=== PATIENT | male | born 1970 | race Caucasian/White ===

== ENCOUNTER 2017-01-14 11:10 | Emergency (ER) | END 2017-01-14 13:05 | disposition home or self-care (01) | DX: R07.9 Chest pain, unspecified (principal); F17.210 Nicotine dependence, cigarettes, uncomplicated | CPT/HCPCS: 71010; 93005; Z7502; Z7610 ==

== ENCOUNTER 2017-01-16 09:03 | Inpatient (IN) | payer MEDICAID ==
[~2017-01-16] VITALS: Ht 162.6 cm; Wt 53.8 kg
[~2017-01-16 09:03] MED LIST: ACET500C5 PO; IBUP-1542 PO; MECL25TA2 PO; ONDA4TAB35 PO
[2017-01-16] MEDS ORDERED: NITROGLYCERIN 2% 1 GM OINT PKT TD STA (09:45)
[2017-01-16] MEDS ORDERED: ASPIRIN 81 MG TAB PO STA (09:45)
[2017-01-16] MEDS ORDERED: NITROGLYCERIN (SL) 0.4 MG TAB SL PRN (10:00)
[2017-01-16 10:07] LABS: ADD SCAN DIFF NO
[2017-01-16 10:15] LABS: BASOPHIL # 0.1 10^3/ul (0.0-0.1); BASOPHILS % 2.3 % (0.0-2.0); EOSINOPHILS # 0.1 10^3/ul (0.0-0.5); EOSINOPHILS % 2.1 % (0.0-7.0); HEMATOCRIT 38.5 % (42.0-52.0); HEMOGLOBIN 13.2 g/dl (14.0-18.0); LYMPHOCYTES # 0.7 10^3/ul (0.8-2.9); LYMPHOCYTES % 13.7 % (15.0-51.0); MEAN CORPUSCULAR HEMOGLOBIN 32.8 pg (29.0-33.0); MEAN CORPUSCULAR HGB CONC 34.3 g/dl (32.0-37.0); MEAN CORPUSCULAR VOLUME 95.8 fl (82.0-101.0); MEAN PLATELET VOLUME 10.2 fl (7.4-10.4); MONOCYTE # 0.7 10^3/ul (0.3-0.9); MONOCYTES % 13.5 % (0.0-11.0); NEUTROPHIL # 3.6 10^3/ul (1.6-7.5); NEUTROPHILS % 68.2 % (39.0-77.0); PLATELET COUNT 219 10^3/UL (140-415); RED BLOOD COUNT 4.02 10^6/ul (4.70-6.10); RED CELL DISTRIBUTION WIDTH 13.2 % (11.5-14.5); WHITE BLOOD COUNT 5.3 10^3/ul (4.8-10.8)
--- NOTE | 2017-01-16 10:18 | RADRPT ---
PROCEDURE: XR Chest. CLINICAL INDICATION: Chest pain TECHNIQUE: A single AP view of the chest was obtained. COMPARISON: Chest x-ray dated 01/14/2017 FINDINGS: No focal airspace opacification, pleural effusion or pneumothorax is seen. There is a 1.1 cm calcif ied nodule in the right lower lobe. The cardiomediastinal silhouette is within normal limits for si ze. The osseous structures are unremarkable. IMPRESSION: 1. No radiographic evidence of acute cardiopulmonary disease. No significant interval change. 2. Right lower lobe granuloma. RPTAT: HH .Saige Erickson MD, MD Date Time Electronically viewed and signed by .Saige Erickson MD, on 01/16/2017 10:18 .G/
[2017-01-16 10:32] LABS: ANION GAP 16 (8-16); BLOOD UREA NITROGEN 4 mg/dl (7-20); CALCIUM 9.2 mg/dl (8.4-10.2); CARBON DIOXIDE 23 mmol/L (21-31); CHLORIDE 98 mmol/L (97-110); CREATININE 0.65 mg/dl (0.61-1.24); GLUCOSE 106 mg/dl (70-220); POTASSIUM 3.8 mmol/L (3.5-5.1); SODIUM 133 mmol/L (135-144)
[2017-01-16 10:48] LABS: TROPONIN-I < 0.012 ng/ml (0.00-0.12)
[2017-01-16 11:08] LABS: INR 0.91; PROTIME 12.3 Sec (12.2-14.2)
[2017-01-16 11:09] LABS: PARTIAL THROMBOPLASTIN TIME 32.8 Sec (25.0-35.0)
[2017-01-16] MEDS ORDERED: ONDANSETRON 4 MG INJ IV PRN ×2 (12:00→16:30)
[2017-01-16] MEDS ORDERED: ACETAMINOPHEN 325 MG TAB PO PRN (12:00)
--- NOTE | 2017-01-16 12:56 | ERA ---
ER Documentation Chief Complaint Date/Time DATE: 01/16/17 TIME: 12:54 Chief Complaint Complains of chest pain since today HPI Patient is a 46-year-old male with no medical problems who presents with chest pain. He has left-sided chest pain that started this morning. The pain is constant. It waxes and wanes in intensity. He was sweating as well. He denies cough. He has had no treatment as of yet. Upon review of old medical records he does have multiple visits to the ER for various complaints. He was seen here 2 days previously for the same. He does not currently have a primary doctor. ROS All systems reviewed and are negative except as per history of present illness. Medications Home Meds Discontinued Reported Medications [none] Unknown Strength No Conflict Check 05/23/15 Discontinued Scripts Ibuprofen* (Motrin*) 600 Mg Tab, 600 MG PO Q8, #30 TAB Prov:NATIVIDAD GIBSON MD 01/14/17 Ondansetron Hcl* (Zofran* ODT) 4 mg -ODT Tab.disper, 4 MG PO Q8 Y for NAUSEA AND /OR VOMITING, #30 TAB Prov:JUDI ANDERSON NP 05/23/15 Acetaminophen* (Tylophen*) 500 Mg Capsule, 1 CAP PO Q6H Y for PAIN AND OR ELEVATED TEMP, #20 CAP Prov:JUDI ANDERSON NP 05/23/15 Meclizine Hcl* (Antivert*) 25 Mg Tablet, 25 MG PO Q6H Y for NAUSEA, #20 TAB Prov:LUDY CORTES 01/04/15 Allergies Allergies: Coded Allergies: No Known Allergy (Unverified , 01/16/17) PMhx/Soc Medical and Surgical Hx: pt denies Medical Hx History of Surgery: Yes (franklin upper extremities, face, abd) Anesthesia Reaction: No Hx Neurological Disorder: No Hx Respiratory Disorders: No Hx Cardiac Disorders: No Hx Psychiatric Problems: No Hx Miscellaneous Medical Probl: No Hx Alcohol Use: Yes ("1-2" beers daily x20 years) Hx Substance Use: No Hx Tobacco Use: Yes (OCCASIONAL CIGARETTES) Smoking Status: Unknown if ever smoked FmHx Family History: No coronary disease Physical Exam Vitals Vital Signs Date Time Temp Pulse Resp B/P Pulse Ox O2 Delivery O2 Flow Rate FiO2 01/16/17 11:44 97.7 61 16 107/72 99 Nasal Cannula 2.0 01/16/17 10:00 Nasal Cannula 2 01/16/17 09:05 97.5 72 20 138/71 98 Physical Exam Const: No acute distress Head: Atraumatic Eyes: Normal Conjunctiva ENT: Normal External Ears, Nose and Mouth. Neck: Full range of motion..~ No meningismus. Resp: Clear to auscultation bilaterally Cardio: Regular rate and rhythm, no murmurs Abd: Soft, non tender, non distended. Normal bowel sounds Skin: No petechiae or rashes Back: No midline or flank tenderness Ext: No cyanosis, or edema Neur: Awake and alert Psych: Normal Mood and Affect Result Diagram: 01/16/1757 01/16/17 0957 Results 24 hrs Laboratory Tests Test 01/16/17 09:57 White Blood Count 5.310^3/ul Red Blood Count 4.0210^6/ul Hemoglobin 13.2g/dl Hematocrit 38.5% Mean Corpuscular Volume 95.8fl Mean Corpuscular Hemoglobin 32.8pg Mean Corpuscular Hemoglobin Concent 34.3g/dl Red Cell Distribution Width 13.2% Platelet Count 52346^3/UL Mean Platelet Volume 10.2fl Neutrophils % 68.2% Lymphocytes % 13.7% Monocytes % 13.5% Eosinophils % 2.1% Basophils % 2.3% Nucleated Red Blood Cells % 0.0/100WBC Neutrophils # 3.610^3/ul Lymphocytes # 0.710^3/ul Monocytes # 0.710^3/ul Eosinophils # 0.110^3/ul Basophils # 0.110^3/ul Nucleated Red Blood Cells # 0.010^3/ul Prothrombin Time 12.3Sec Prothrombin Time Ratio 1.0 INR International Normalized Ratio 0.91 Activated Partial Thromboplast Time 32.8Sec Sodium Level 133mmol/L Potassium Level 3.8mmol/L Chloride Level 98mmol/L Carbon Dioxide Level 23mmol/L Anion Gap 16 Blood Urea Nitrogen 4mg/dl Creatinine 0.65mg/dl Glucose Level 106mg/dl Calcium Level 9.2mg/dl Troponin I < 0.012ng/ml Current Medications Medications (Trade) Dose Ordered Sig/Loly Route PRN Reason Start Time Stop Time Status Last Admin Dose Admin Aspirin (Aspirin) 162 mg ONCE STAT PO 01/16/17 09:45 01/16/17 09:46 DC 01/16/17 09:59 Nitroglycerin (Nitroglycerin 2% Oint) 1 inch ONCE STAT TD 01/16/17 09:45 01/16/17 09:46 DC 01/16/17 09:59 Nitroglycerin (Nitroglycerin (Sl Tab) 0.4 Mg) 1 tab Q5M UP TO 3 DOSES PRN SL CHEST PAIN 01/16/17 10:00 01/16/17 10:00 Ondansetron HCl (Zofran Inj) 4 mg ER BRIDGE PRN IV NAUSEA AND/OR VOMITING 01/16/17 12:00 01/17/17 11:59 Acetaminophen (Tylenol Tab) 650 mg ER BRIDGE PRN PO MILD PAIN/FEVER 01/16/17 12:00 01/17/17 11:59 Procedures/MDM EKG #1 read by me: Rate/Rhythm: Regular rate and rhythm at a normal rate Intervals: Normal Impression: No evidence of ischemia or arrhythmia EKG #2 read by me: Rate/Rhythm: Regular rate and rhythm at a normal rate Intervals: Normal Impression: No evidence of ischemia or arrhythmia Chest x-ray negative for pneumonia or pneumothorax per radiology. Smoking Cessation Therapy: Pt. was lectured for greater than 3 minutes on the health risks of continued smoking and the benefits of cessation. Patient is a 46-year-old male who smokes who presents with chest pain. His x- ray was negative for pneumonia or pneumothorax. I doubt pulmonary embolism or aortic dissection. I am concerned for potential acute coronary syndrome given his age and smoking cessation. The patient will be admitted to the care of Dr. Henry from the panel team for further workup. He will be admitted to a telemetry bed. The patient understands the plan is okay for admission. The patient was given aspirin nitroglycerin empirically. Departure Diagnosis: Primary Impression: Chest pain Qualified Code: R07.9 - Chest pain, unspecified type Condition: NATIVIDAD Alatorre MD Jan 16, 2017 12:56
[2017-01-16 12:58] VITALS: TEMP 98
[2017-01-16 14:23] VITALS: Ht 162.6 cm; Wt 53.8 kg
[2017-01-16 16:15] VITALS: BP 112/74; RESP 20
--- NOTE | 2017-01-16 16:32 | HP ---
Date/Time of Note Date/Time of Note DATE: 01/16/17 TIME: 16:29 Assessment/Plan VTE Prophylaxis VTE Prophylaxis Intervention: LMWH Lines/Catheters IV Catheter Type (from Nrs): Saline Lock Assessment/Plan Assessment/Plan 1. Chest pain 2. tobacco abuse 3. hx of elevated liver enzymes PLAN: Telemetry admission, trend cardiac enzymes, 2d echo if none recently and possible cardiology consult for stress test. Trend liver enzymes, possible liver ultrasound if indicated oxygen and nitroglycerin therapy as needed. Daily aspirin if no allergy or bleeding risk. Get lipid profile, magnesium and TSH levels in am. Smoking Cessation Therapy: Pt. was lectured for greater than 3 minutes on the health risks of continued smoking and the benefits of cessation and this will continue to be reinforced throughout hospitalization. HPI/ROS Admit Date/Time Admit Date/Time Jan 16, 2017 at 11:33 Hx of Present Illness 46-year-old male who presented to the emergency room with left-sided chest pain that was described as intermittent and about an 8 out of 10 at the worst. His risk factor for coronary artery disease is tobacco use, however patient has presented to the ER once previously for similar symptoms. Pain is sometimes reproducible. He denies cough, denies palpitations, denies shortness of breath but thinks he might of had some diaphoresis. Denies acid reflux, denies abdominal pain nausea, vomiting or black or bloody stools. ROS 12 point review if systems was done and pertinent findings are as noted. PMH/Family/Social Past Medical History Medical History: no pertinent history Past Surgical History * L arm sx Family History Significant Family History: heart disease Social History Alcohol Use: occasionally Smoking Status: Current every day smoker Drug Use: none Exam/Review of Systems Vital Signs Vitals VS - Last 72 Hours, by Label Date Time Temp Pulse Resp B/P Pulse Ox O2 Delivery O2 Flow Rate FiO2 01/16/17 16:15 98.8 58 20 112/74 100 01/16/17 12:58 98.0 66 14 118/80 99 Nasal Cannula 2.0 01/16/17 11:44 97.7 61 16 107/72 99 Nasal Cannula 2.0 01/16/17 10:00 Nasal Cannula 2 01/16/17 09:05 97.5 72 20 138/71 98 Vital Signs Date Time Temp Pulse Resp B/P Pulse Ox O2 Delivery O2 Flow Rate FiO2 01/16/17 16:15 98.8 58 20 112/74 100 01/16/17 12:58 Nasal Cannula 2.0 Exam Exam GENERAL: Patient is alert, oriented x 3, in no apparent distress; does not appear acutely or chronically ill. Patient is able to sit up unassisted.Patient makes good eye contact, is conversant, interactive, coherent. Patient appears calm and comfortable and is able to follow commands. HEENT: Oropharynx is clear. There is no carotid bruit, no masses. Patient's pupils are equal, round and reactive to light bilaterally. Extraocular motions are intact. There is no scleral icterus. There is no facial asymmetry. NECK: Supple. LUNGS: Clear to auscultation bilaterally with good air entry. No Wheezes or crackles. HEART: S1, S2. No murmur, gallops or rubs. Regular rate and rhythm. ABDOMEN: Soft, nontender. Normoactive bowel sounds. There are no stigmata of chronic liver disease. BACK: no costovertebral angle tenderness. GENITOURINARY: Deferred. EXTREMITIES: No edema. There is no cyanosis, clubbing. There are 2+ pulses bilaterally distally. NEUROLOGIC: The patient has no lateralizing signs. Cranial nerves II-XII are intact. SKIN: Otherwise, unremarkable. Labs Result Diagram: 01/16/17 0957 01/16/17 0957 Procedures Procedures Laboratory Tests Test 01/16/17 09:57 White Blood Count 5.310^3/ul Red Blood Count 4.0210^6/ul Hemoglobin 13.2g/dl Hematocrit 38.5% Mean Corpuscular Volume 95.8fl Mean Corpuscular Hemoglobin 32.8pg Mean Corpuscular Hemoglobin Concent 34.3g/dl Red Cell Distribution Width 13.2% Platelet Count 20817^3/UL Mean Platelet Volume 10.2fl Neutrophils % 68.2% Lymphocytes % 13.7% Monocytes % 13.5% Eosinophils % 2.1% Basophils % 2.3% Nucleated Red Blood Cells % 0.0/100WBC Neutrophils # 3.610^3/ul Lymphocytes # 0.710^3/ul Monocytes # 0.710^3/ul Eosinophils # 0.110^3/ul Basophils # 0.110^3/ul Nucleated Red Blood Cells # 0.010^3/ul Prothrombin Time 12.3Sec Prothrombin Time Ratio 1.0 INR International Normalized Ratio 0.91 Activated Partial Thromboplast Time 32.8Sec Sodium Level 133mmol/L Potassium Level 3.8mmol/L Chloride Level 98mmol/L Carbon Dioxide Level 23mmol/L Anion Gap 16 Blood Urea Nitrogen 4mg/dl Creatinine 0.65mg/dl Glucose Level 106mg/dl Calcium Level 9.2mg/dl Troponin I < 0.012ng/ml Current Medications Medications (Trade) Dose Ordered Sig/Loly Route PRN Reason Start Time Stop Time Status Last Admin Dose Admin Aspirin (Aspirin) 162 mg ONCE STAT PO 01/16/17 09:45 01/16/17 09:46 DC 01/16/17 09:59 162 MG Nitroglycerin (Nitroglycerin 2% Oint) 1 inch ONCE STAT TD 01/16/17 09:45 01/16/17 09:46 DC 01/16/17 09:59 1 INCH Nitroglycerin (Nitroglycerin (Sl Tab) 0.4 Mg) 1 tab Q5M UP TO 3 DOSES PRN SL CHEST PAIN 01/16/17 10:00 01/16/17 10:00 1 TAB Ondansetron HCl (Zofran Inj) 4 mg ER BRIDGE PRN IV NAUSEA AND/OR VOMITING 01/16/17 12:00 01/17/17 11:59 Acetaminophen (Tylenol Tab) 650 mg ER BRIDGE PRN PO MILD PAIN/FEVER 01/16/17 12:00 01/17/17 11:59 PROCEDURE: XR Chest. CLINICAL INDICATION: Chest pain TECHNIQUE: A single AP view of the chest was obtained. COMPARISON: Chest x-ray dated 01/14/2017 FINDINGS: No focal airspace opacification, pleural effusion or pneumothorax is seen. There is a 1.1 cm calcified nodule in the right lower lobe. The cardiomediastinal silhouette is within normal limits for size. The osseous structures are unremarkable. IMPRESSION: 1. No radiographic evidence of acute cardiopulmonary disease. No significant interval change. 2. Right lower lobe granuloma. RPTAT: HH .Saige Erickson MD, MD Date Time Electronically viewed and signed by .Saige Erickson MD, MD on 01/16/2017 10 :18 .G/ CC: NATIVIDAD GIBSON MD I reviewed EKG Rate: Within normal limits Rhythm: sinus Note: No ST elevation or depressions noted concerning for acute ischemic event. NEHA WHITTEN Jan 16, 2017 16:32
[2017-01-16 16:42] VITALS: PULSE 48
[2017-01-16 17:13] LABS: CREATINE KINASE 137 IU/L (23-200)
[2017-01-16 17:26] LABS: CK-MB 1.16 ng/ml (0.0-2.4); TROPONIN-I < 0.012 ng/ml (0.00-0.12)
[2017-01-16 19:45] VITALS: BP 106/60; RESP 16
[2017-01-16 20:00] VITALS: PULSE 58
[2017-01-16 22:11] LABS: CREATINE KINASE 126 IU/L (23-200)
[2017-01-16] MEDS: FAMOTIDINE 20 MG TAB PO SCH (22:13)
[2017-01-16 22:28] LABS: CK-MB 1.04 ng/ml (0.0-2.4); TROPONIN-I < 0.012 ng/ml (0.00-0.12)
[2017-01-17] VITALS (10 sets, daily range): BP systolic 129–149; BP diastolic 73–83; PULSE 45–56; RESP 16–17
[2017-01-17 03:54] LABS: ADD UMIC YES; UR ASCORBIC ACID NEGATIVE (NEGATIVE); UR BILIRUBIN (Dip) NEGATIVE (NEGATIVE); UR BLOOD (Dip) 1+ mg/dL (NEGATIVE); UR CLARITY CLEAR (CLEAR); UR COLOR YELLOW (YELLOW); UR GLUCOSE (Dip) NEGATIVE (NEGATIVE); UR KETONES (Dip) NEGATIVE (NEGATIVE); UR LEUKOCYTE ESTERASE (Dip) NEGATIVE Leu/ul (NEGATIVE); UR NITRITE (Dip) NEGATIVE (NEGATIVE); UR RBC 0 /HPF (0-5); UR SPECIFIC GRAVITY (Dip) 1.008 (1.003-1.030); UR TOTAL PROTEIN (Dip) NEGATIVE (NEGATIVE); UR UROBILINOGEN (Dip) NEGATIVE (NEGATIVE)
[2017-01-17 04:17] LABS: BARBITURATES Negative (NEGATIVE); BENZODIAZEPINES Negative (NEGATIVE); CANNABINOIDS Negative (NEGATIVE); COCAINE Negative (NEGATIVE); OPIATES Negative (NEGATIVE)
[2017-01-17 07:57] LABS: ADD SCAN DIFF NO
[2017-01-17 08:09] LABS: BASOPHIL # 0.1 10^3/ul (0.0-0.1); BASOPHILS % 2.5 % (0.0-2.0); EOSINOPHILS # 0.3 10^3/ul (0.0-0.5); EOSINOPHILS % 4.9 % (0.0-7.0); HEMATOCRIT 40.2 % (42.0-52.0); HEMOGLOBIN 13.6 g/dl (14.0-18.0); LYMPHOCYTES # 0.9 10^3/ul (0.8-2.9); LYMPHOCYTES % 15.9 % (15.0-51.0); MEAN CORPUSCULAR HEMOGLOBIN 32.5 pg (29.0-33.0); MEAN CORPUSCULAR HGB CONC 33.8 g/dl (32.0-37.0); MEAN CORPUSCULAR VOLUME 95.9 fl (82.0-101.0); MEAN PLATELET VOLUME 10.9 fl (7.4-10.4); MONOCYTE # 0.6 10^3/ul (0.3-0.9); MONOCYTES % 11.2 % (0.0-11.0); NEUTROPHIL # 3.7 10^3/ul (1.6-7.5); NEUTROPHILS % 65.1 % (39.0-77.0); PLATELET COUNT 202 10^3/UL (140-415); RED BLOOD COUNT 4.19 10^6/ul (4.70-6.10); RED CELL DISTRIBUTION WIDTH 13.5 % (11.5-14.5); WHITE BLOOD COUNT 5.7 10^3/ul (4.8-10.8)
[2017-01-17 08:25] LABS: ALANINE AMINOTRANSFERASE 115 IU/L (13-69); ALBUMIN 4.8 g/dl (3.3-4.9); ALKALINE PHOSPHATASE 95 IU/L (42-121); ASPARTATE AMINO TRANSFERASE 245 IU/L (15-46); BILIRUBIN,INDIRECT 0.6 mg/dl (0-1.1); BILIRUBIN,TOTAL 0.6 mg/dl (0.2-1.3); BLOOD UREA NITROGEN 10 mg/dl (7-20); CALCIUM 9.8 mg/dl (8.4-10.2); CARBON DIOXIDE 29 mmol/L (21-31); CHLORIDE 97 mmol/L (97-110); CHOLESTEROL 275 mg/dl (100-200); CREATININE 0.75 mg/dl (0.61-1.24); GLUCOSE 70 mg/dl (70-220); POTASSIUM 4.3 mmol/L (3.5-5.1); TOTAL PROTEIN 7.6 g/dl (6.1-8.1); TRIGLYCERIDES 43 mg/dl (0-149)
[2017-01-17 08:37] LABS: CHOL/HDL RATIO 1.3 RATIO; HDL CHOLESTEROL 210 mg/dl (27-67)
[2017-01-17 08:39] LABS: IRON 110 ug/dl (35-150)
[2017-01-17 08:49] LABS: TOTAL IRON BINDING CAPACITY 261 ug/dl (241-421)
[2017-01-17] MEDS ORDERED: ASPIRIN (EC) 81 MG TAB PO SCH (09:00)
[2017-01-17] MEDS ORDERED: ENOXAPARIN 40 MG/0.4 ML SYG SC SCH (09:00)
[2017-01-17] MEDS: FAMOTIDINE 20 MG TAB PO SCH (09:49)
--- NOTE | 2017-01-17 12:09 | CONS ---
Date/Time of Note Date/Time of Note DATE: 01/17/17 TIME: 12:03 Assessment/Plan Assessment/Plan Chief Complaint/Hosp Course Chest wall pain: The pain is easily reproducible on exam and is non-exertional. EKG and trops are negative. I believe it is all musculoskeletal and stress testing may yield false positive results at best. Tobacco use: counseled on cessation -f/u echo -no stress testing at this time -will start trial of ibuprofen Problems: Consultation Date/Type/Reason Admit Date/Time Jan 16, 2017 at 11:33 Date of Consultation: Jan 17, 2017 Type of Consultation: Cardiology Reason for Consultation Chest pain Referring Provider: NEHA WHITTEN Hx of Present Illness 46 yo M with a h/o tobacco use who presented with left chest wall pain. The pt has been having pain in his left chest wall for 5 days. He notes that the pain is sharp, constant, not exacerbated by activity. It hurts when he touches the area or when he moves his left arm. No SOB. No prior cardiac history. Smokes 5 cigs daily. No family h/o CAD. per HPI Past Medical History Medical History: no pertinent history Social History Alcohol Use: occasionally Smoking Status: Current every day smoker Drug Use: none Exam/Review of Systems Vital Signs Vitals Vital Signs Date Time Temp Pulse Resp B/P Pulse Ox O2 Delivery O2 Flow Rate FiO2 01/17/17 11:59 98.5 62 16 132/78 100 01/16/17 12:58 Nasal Cannula 2.0 Intake and Output 01/16/17 01/16/17 01/17/17 15:00 23:00 07:00 Intake Total 430 ml Balance 430 ml Exam Constitutional: alert, oriented Psych: nl mood/affect, no complaints Head: atraumatic, normocephalic Neck: supple, No jvd Respiratory: clear to auscultation, No crackles/rales Cardiovascular: regular rate and rhythm, No edema, No systolic murmur Gastrointestinal: non-tender, soft Musculoskeletal: other (left chest wall with clearly reproducoble pain (the pt jumps when the area is touched)) Extremities: normal pulses, No edema Neurological: nl mental status, nl speech Results Result Diagram: 01/17/17 0707 01/17/17 0708 Results 24 hrs Laboratory Tests Test 01/16/17 16:40 01/16/17 21:44 01/17/17 02:00 01/17/17 07:07 Creatine Kinase 137 126 Creatine Kinase Index 0.8 0.8 Creatinine Kinase MB (Mass) 1.16 1.04 Troponin I < 0.012 < 0.012 Magnesium Level 1.7 Urine Color YELLOW Urine Clarity CLEAR Urine pH 5.0 Urine Specific [place] 1.008 Urine Ketones NEGATIVE Urine Nitrite NEGATIVE Urine Bilirubin NEGATIVE Urine Urobilinogen NEGATIVE Urine Leukocyte Esterase NEGATIVE Urine Microscopic RBC 0 Urine Microscopic WBC 0 Urine Hemoglobin 1+ H Urine Glucose NEGATIVE Urine Total Protein NEGATIVE Urine Opiates Screen Negative Urine Barbiturates Negative Urine Amphetamines Screen Negative Urine Benzodiazepines Screen Negative Urine Cocaine Screen Negative Urine Cannabinoids Negative White Blood Count 5.7 Red Blood Count 4.19 L Hemoglobin 13.6 L Hematocrit 40.2 L Mean Corpuscular Volume 95.9 Mean Corpuscular Hemoglobin 32.5 Mean Corpuscular Hemoglobin Concent 33.8 Red Cell Distribution Width 13.5 Platelet Count 202 Mean Platelet Volume 10.9 H Neutrophils % 65.1 Lymphocytes % 15.9 Monocytes % 11.2 H Eosinophils % 4.9 Basophils % 2.5 H Nucleated Red Blood Cells % 0.0 Neutrophils # 3.7 Lymphocytes # 0.9 Monocytes # 0.6 Eosinophils # 0.3 Basophils # 0.1 Nucleated Red Blood Cells # 0.0 Iron Level 110 Total Iron Binding Capacity 261 Percent Iron Saturation 42 Hepatitis B Surface Antibody NEGATIVE Test 01/17/17 07:08 Sodium Level 132 L Potassium Level 4.3 Chloride Level 97 Carbon Dioxide Level 29 Anion Gap 10 # Blood Urea Nitrogen 10 Creatinine 0.75 Glucose Level 70 Calcium Level 9.8 Total Bilirubin 0.6 Direct Bilirubin 0.00 Indirect Bilirubin 0.6 Aspartate Amino Transf (AST/SGOT) 245 H Alanine Aminotransferase (ALT/SGPT) 115 H Alkaline Phosphatase 95 Total Protein 7.6 Albumin 4.8 Triglycerides Level 43 Cholesterol Level 275 H LDL Cholesterol, Calculated 56 HDL Cholesterol 210 H Cholesterol/HDL Ratio 1.3 Thyroid Stimulating Hormone (TSH) 5.060 H Hepatitis B Surface Antigen NEGATIVE Hepatitis C Antibody NEGATIVE Medications Medications Current Medications Aspirin (Halfprin) 81 mg DAILY PO Last administered on 01/17/17 09:49; Admin Dose 81 MG; Start 01/17/17 at 09:00 Famotidine (Pepcid) 20 mg BID PO Last administered on 01/17/17 09:49; Admin Dose 20 MG; Start 01/16/17 at 21:00 Ondansetron HCl (Zofran Inj) 4 mg Q6H PRN IV NAUSEA AND/OR VOMITING; Start at 16:30 Enoxaparin Sodium (Lovenox) 40 mg DAILY SC Last administered on 01/17/17 09:53 ; Admin Dose 40 MG; Start 01/17/17 at 09:00 MARISA JOHNSON Jan 17, 2017 12:09
[2017-01-17] MEDS ORDERED: IBUPROFEN 600 MG TAB PO SCH (14:00)
[2017-01-17] MEDS ORDERED: IBUP-1542 PO (14:22)
--- NOTE | 2017-01-17 14:28 | DS ---
Date/Time of Note Date/Time of Note DATE: 01/17/17 TIME: 14:24 Discharge Summary Admission/Discharge Info Admit Date/Time Jan 16, 2017 at 11:33 Discharge Date/Time Discharge Diagnosis 1. Chest pain, musculoskeletal 2. tobacco abuse, quit Patient Condition: Stable Hospital Course 46 yo M with a h/o tobacco use who presented with left chest wall pain. The pt has been having pain in his left chest wall for 5 days. He notes that the pain is sharp, constant, not exacerbated by activity. It hurts when he touches the area or when he moves his left arm. No SOB. No prior cardiac history. Smokes 5 cigs daily. No family h/o CAD. Physical exam with left frontal chest wall tenderness at one fingertip spot only. Troponin negative and so the ECG Patient is discharged with motrin prn and instructed to quit smoking. Home Meds Active Scripts Ibuprofen* (Ibuprofen*) 600 Mg Tablet, 600 MG PO Q8 for 30 Days, TAB Prov:PHIL DOMINGUEZ MD 01/17/17 Discontinued Reported Medications [none] Unknown Strength No Conflict Check 05/23/15 Discontinued Scripts Ibuprofen* (Motrin*) 600 Mg Tab, 600 MG PO Q8, #30 TAB Prov:NATIVIDAD GIBSON MD 01/14/17 Ondansetron Hcl* (Zofran* ODT) 4 mg -ODT Tab.disper, 4 MG PO Q8 Y for NAUSEA AND /OR VOMITING, #30 TAB Prov:JUDI ANDERSON NP 05/23/15 Acetaminophen* (Tylophen*) 500 Mg Capsule, 1 CAP PO Q6H Y for PAIN AND OR ELEVATED TEMP, #20 CAP Prov:JUDI ANDERSON NP 05/23/15 Meclizine Hcl* (Antivert*) 25 Mg Tablet, 25 MG PO Q6H Y for NAUSEA, #20 TAB Prov:LUDY CORTES 01/04/15 Follow-up Plan PCP in one week Primary Care Provider [facility] Pending Labs Laboratory Tests Test 01/16/17 16:40 01/16/17 21:44 01/17/17 02:00 01/17/17 07:07 Creatine Kinase 137IU/L (23-200) 126IU/L (23-200) Creatine Kinase Index 0.8 0.8 Creatinine Kinase MB (Mass) 1.16ng/ml (0.0-2.4) 1.04ng/ml (0.0-2.4) Troponin I < 0.012ng/ml (0.00-0.12) < 0.012ng/ml (0.00-0.12) Magnesium Level 1.7mg/dl (1.7-2.5) Urine Color YELLOW (YELLOW) Urine Clarity CLEAR (CLEAR) Urine pH 5.0 (5.0-9.0) Urine Specific [place] 1.008 (1.003-1.030) Urine Ketones NEGATIVEmg/dL (NEGATIVE) Urine Nitrite NEGATIVEmg/dL (NEGATIVE) Urine Bilirubin NEGATIVEmg/dL (NEGATIVE) Urine Urobilinogen NEGATIVEmg/dL (NEGATIVE) Urine Leukocyte Esterase NEGATIVELeu/ul (NEGATIVE) Urine Microscopic RBC 0/HPF (0-5) Urine Microscopic WBC 0/HPF (0-5) Urine Hemoglobin 1+mg/dL (NEGATIVE) Urine Glucose NEGATIVEmg/dL (NEGATIVE) Urine Total Protein NEGATIVEmg/dl (NEGATIVE) Urine Opiates Screen Negative (NEGATIVE) Urine Barbiturates Negative (NEGATIVE) Urine Amphetamines Screen Negative (NEGATIVE) Urine Benzodiazepines Screen Negative (NEGATIVE) Urine Cocaine Screen Negative (NEGATIVE) Urine Cannabinoids Negative (NEGATIVE) White Blood Count 5.710^3/ul (4.8-10.8) Red Blood Count 4.1910^6/ul (4.70-6.10) Hemoglobin 13.6g/dl (14.0-18.0) Hematocrit 40.2% (42.0-52.0) Mean Corpuscular Volume 95.9fl (82.0-101.0) Mean Corpuscular Hemoglobin 32.5pg (29.0-33.0) Mean Corpuscular Hemoglobin Concent 33.8g/dl (32.0-37.0) Red Cell Distribution Width 13.5% (11.5-14.5) Platelet Count 51219^3/UL (140-415) Mean Platelet Volume 10.9fl (7.4-10.4) Neutrophils % 65.1% (39.0-77.0) Lymphocytes % 15.9% (15.0-51.0) Monocytes % 11.2% (0.0-11.0) Eosinophils % 4.9% (0.0-7.0) Basophils % 2.5% (0.0-2.0) Nucleated Red Blood Cells % 0.0/100WBC (0.0-0.0) Neutrophils # 3.710^3/ul (1.6-7.5) Lymphocytes # 0.910^3/ul (0.8-2.9) Monocytes # 0.610^3/ul (0.3-0.9) Eosinophils # 0.310^3/ul (0.0-0.5) Basophils # 0.110^3/ul (0.0-0.1) Nucleated Red Blood Cells # 0.010^3/ul (0.0-0.0) Iron Level 110ug/dl (35-150) Total Iron Binding Capacity 261ug/dl (241-421) Percent Iron Saturation 42% SAT (22-52) Hepatitis B Surface Antibody NEGATIVE (NEGATIVE) Test 01/17/17 07:08 Sodium Level 132mmol/L (135-144) Potassium Level 4.3mmol/L (3.5-5.1) Chloride Level 97mmol/L (97-110) Carbon Dioxide Level 29mmol/L (21-31) Anion Gap 10 (8-16) Blood Urea Nitrogen 10mg/dl (7-20) Creatinine 0.75mg/dl (0.61-1.24) Glucose Level 70mg/dl (70-220) Calcium Level 9.8mg/dl (8.4-10.2) Total Bilirubin 0.6mg/dl (0.2-1.3) Direct Bilirubin 0.00mg/dl (0.00-0.20) Indirect Bilirubin 0.6mg/dl (0-1.1) Aspartate Amino Transf (AST/SGOT) 245IU/L (15-46) Alanine Aminotransferase (ALT/SGPT) 115IU/L (13-69) Alkaline Phosphatase 95IU/L (42-121) Total Protein 7.6g/dl (6.1-8.1) Albumin 4.8g/dl (3.3-4.9) Triglycerides Level 43mg/dl (0-149) Cholesterol Level 275mg/dl (100-200) LDL Cholesterol, Calculated 56mg/dl HDL Cholesterol 210mg/dl (27-67) Cholesterol/HDL Ratio 1.3RATIO Thyroid Stimulating Hormone (TSH) 5.060MIU/L (0.465-4.680) Hepatitis B Surface Antigen NEGATIVE (NEGATIVE) Hepatitis C Antibody NEGATIVE (NEGATIVE) PHIL DOMINGUEZ MD Jan 17, 2017 14:28
--- NOTE | 2017-01-17 14:46 | RADRPT ---
Echocardiogram Report Patient Name: BRE WALSH Gender: Male Date: 1970 Study Date: 17-Jan-2017 Building Rental Manager: Marti Sharma [facility]UST Location: [id number] Ref. Physician: NEHA WHITTEN Quality: Good Procedures: Transthoracic echocardiogram with complete 2D, M-Mode, and doppler examination. Indications: Chest Pain. 2D/M Mode Doppler Measurement Value Normal Ranges Measurement Value Normal Ranges LVIDd 2D 3.7 3.5 - 5.6 cm AV Mean Mike 0.9 m/sec LVIDs 2D 1.9 2.1 - 4.1 cm AV Mean PG 3.5 mmHg LVPWd 2D 1.0 0.6 - 1.1 cm AV Peak Mike 1.3 m/sec IVSd 2D 1.0 0.6 - 1.1 cm AV Peak PG 7.0 mmHg AoR Diam 2D 3.1 2.0 - 3.7 cm AV VTI 28.0 cm EDV 2D 56.7 cm3 LVOT Peak Mike 0.9 m/sec ESV 2D 7.1 cm3 LVOT Peak PG 3.4 mmHg LA Dimen 2D 2.4 2.3 - 4.0 cm MV E Peak Mike 0.8 m/sec MV A Peak Miek 0.9 m/sec MV E/A 0.9 MV Decel Time 154 msec MV Decel [place] 5 MV E/A 0.9 TR Peak Mike 4.2 m/sec TR Peak PG 71.5 mmHg RVSP 74.5 mmHg Findings Left Ventricle: Normal left ventricular systolic function. Normal left ventricular cavity size. Normal left ventricular wall thickness. Ejection fraction is visually estimated at 60 %. Right Ventricle: Normal right ventricular size. Normal right ventricular systolic function. Left Atrium: The left atrium is normal in size. Right Atrium: The right atrium is normal in size. Mitral Valve: Normal appearance of the mitral valve. Mild mitral annular calcification. Trace mitral regurgitation. Aortic Valve: Normal appearance of the aortic valve. No significant aortic stenosis or insufficiency. Tricuspid Valve: Normal appearance of the tricuspid valve. Unable to obtain RVSP due to minimal presence of tricuspid regurgitation. There is trace tricuspid regurgitation. Pulmonic Valve: Pulmonic valve not well visualized. Pericardium: Pleural effusion seen. Aorta: Normal aortic root. IVC: Normal size and normal respiratory collapse consistent with normal right atrial pressure. Conclusions Normal left ventricular systolic function. Normal left ventricular cavity size. Normal left ventricular wall thickness. Ejection fraction is visually estimated at 60 %. No significant valvular stenosis or regurgitation seen. Unable to obtain RVSP due to minimal presence of tricuspid regurgitation. RA pressure is estimated to be 3 mmHg. Electronically Signed By: Carlitos Bowman 17-Jan-2017 14:45:19 -0700 Patient Name: BRE WALSH Study Date: 17-Jan-2017 [id number]
[2017-01-17 20:47] LABS: ANION GAP 18 (8-16); SODIUM 140 mmol/L (135-144)
== END 2017-01-17 16:53 | disposition home or self-care (01) | DRG 313 ==
LOC: E/R 09:03 → MS4 11:33
PROVIDERS: ADMIT Family Medicine; ATTEND Family Medicine
DX: R07.89 Other chest pain (principal); F17.210 Nicotine dependence, cigarettes, uncomplicated
CPT/HCPCS: 36415; 71010; 80048; 80061; 80076; 80307; 81001; 82550; 82553; 83036; 83540; 83735; 84443; 84484; 85025; 85610; 85730; 86706; 86803; 87340; 93005; 93306; J1650

== ENCOUNTER 2017-01-21 13:27 | Emergency (ER) | payer MEDICAID ==
[~2017-01-21] VITALS: Ht 154.9 cm; Wt 60.0 kg
[~2017-01-21 13:27] MED LIST changes: -ACET500C5 PO; -MECL25TA2 PO; -ONDA4TAB35 PO
[2017-01-21 13:39] VITALS: Ht 154.9 cm; Wt 60.0 kg
--- NOTE | 2017-01-21 14:06 | ERA ---
ER Documentation Chief Complaint Date/Time DATE: 01/21/17 TIME: 14:03 Chief Complaint needs note to go back to work HPI This is a 46-year-old male presenting with no complaints. Patient is requesting a note to clear him to go back to work. Patient does state that he sustained a bruise from carrying a heavy object on his arm. No pain and denies any other symptoms. No medications. Nursing notes have been reviewed and are consistent with history given ROS All systems reviewed and are negative except as per history of present illness. Medications Home Meds Active Scripts Ibuprofen* (Ibuprofen*) 600 Mg Tablet, 600 MG PO Q8 for 30 Days, TAB Prov:PHIL DOMINGUEZ MD 01/17/17 Discontinued Reported Medications [none] Unknown Strength No Conflict Check 05/23/15 Discontinued Scripts Ibuprofen* (Motrin*) 600 Mg Tab, 600 MG PO Q8, #30 TAB Prov:NATIVIDAD GIBSON MD 01/14/17 Ondansetron Hcl* (Zofran* ODT) 4 mg -ODT Tab.disper, 4 MG PO Q8 Y for NAUSEA AND /OR VOMITING, #30 TAB Prov:JUDI ANDERSON NP 05/23/15 Acetaminophen* (Tylophen*) 500 Mg Capsule, 1 CAP PO Q6H Y for PAIN AND OR ELEVATED TEMP, #20 CAP Prov:JUDI ANDERSON NP 05/23/15 Meclizine Hcl* (Antivert*) 25 Mg Tablet, 25 MG PO Q6H Y for NAUSEA, #20 TAB Prov:LUDY CORTES 01/04/15 Allergies Allergies: Coded Allergies: No Known Allergy (Unverified , 01/16/17) PMhx/Soc History of Surgery: No Anesthesia Reaction: No Hx Neurological Disorder: No Hx Respiratory Disorders: No Hx Cardiac Disorders: No Hx Psychiatric Problems: No Hx Miscellaneous Medical Probl: No Hx Alcohol Use: No Hx Substance Use: No Hx Tobacco Use: Yes Physical Exam Vitals Vital Signs Date Time Temp Pulse Resp B/P Pulse Ox O2 Delivery O2 Flow Rate FiO2 01/21/17 13:39 98.1 85 18 109/67 99 Physical Exam Const: Well-appearing Head: Atraumatic Eyes: Normal Conjunctiva ENT: Normal External Ears, Nose and Mouth. Neck: Full range of motion..~ No meningismus. Resp: Clear to auscultation bilaterally Cardio: Regular rate and rhythm, no murmurs Abd: Soft, non tender, non distended. Normal bowel sounds Skin: No petechiae or rashes Back: No midline or flank tenderness Ext: No cyanosis, or edema Neur: Awake and alert Psych: Normal Mood and Affect Procedures/MDM Healthy well-appearing 46-year-old male presenting for a work note. Patient has a 3 cm x 1 cm bruise on the left arm. Denies any other symptoms or recent illness. I have little suspicion for any neurovascular compromise. Patient will be discharged at this time with discharge instructions and return precautions. Departure Diagnosis: Primary Impression: Follow-up examination for injury Patient Instructions: Contusions (Bruises) Additional Instructions: Suman un seguimiento con andujar PCP dentro de los prximos 1-3 roldan para darion evaluaci n ms completa y darion posible derivacin a un especialista. Devuelva el departamento de emergencia inmediatamente si los sntomas empeoran o cambian. Si tiene alguna pregunta con respecto a los medicamentos, consulte con andujar farmac utico o con nosotros antes de salir. Si se producen reacciones adversas mientras nicolás neelam medicamentos, suspenda el tratamiento y regrese inmediatamente al servicio de urgencias. [place] neelam medicamentos segn las indicaciones y complete el curso completo del tratamiento. CHELSEA GUILLAUME PA-C Jan 21, 2017 14:05
== END 2017-01-21 14:30 | disposition home or self-care (01) ==
LOC: FTE 13:27
DX: Z48.01 Encounter for change or removal of surgical wound dressing (principal); Z87.891 Personal history of nicotine dependence
CPT/HCPCS: 99281

== ENCOUNTER 2017-04-03 18:33 | Emergency (ER) | payer MEDICAID, OTHER ==
[~2017-04-03] VITALS: Ht 162.6 cm; Wt 51.5 kg
[2017-04-03 18:47] VITALS: Ht 162.6 cm; Wt 51.5 kg
[2017-04-03] MEDS ORDERED: KETOROLAC 30 MG INJ IM STA (20:37)
--- NOTE | 2017-04-03 21:25 | RADRPT ---
PROCEDURE: XR Left Foot. CLINICAL INDICATION: Left foot pain. Trauma due to a crush injury. TECHNIQUE: Three views. Frontal, lateral, and oblique. COMPARISON: None. FINDINGS: There is no fracture or dislocation. There is soft tissue swelling overlying the metatarsal heads. There are degenerative changes of the first metatarsal phalangeal joint with joint space narrowing, osteophytes, subarticular sclerosis, and deformity. There is no lytic or blastic lesion. There is no radiopaque foreign body. IMPRESSION: 1. Severe degenerative changes of the left first metatarsal phalangeal joint. 2. Soft tissue swelling overlying the metatarsal heads. 3. Otherwise unremarkable images of the left foot. RPTAT: QQ .Ar Guthrie MD, MD Date Time Electronically viewed and signed by .Ar Guthrie MD, on 04/03/2017 21:24 .R/
--- NOTE | 2017-04-03 21:46 | RADRPT ---
PROCEDURE: XR Left Ankle. CLINICAL INDICATION: Trauma due to a crush injury. Left ankle pain. TECHNIQUE: 3 views. Frontal, lateral, and oblique. COMPARISON: None. FINDINGS: There is no fracture or dislocation. The soft tissues are normal. Articular surfaces are intact. There is no lytic or blastic lesion. There is no radiopaque foreign body. IMPRESSION: 1. Normal images of the left ankle. RPTAT: QQ .Ar Guthrie MD, MD Date Time Electronically viewed and signed by .Ar Guthrie MD, on 04/03/2017 21:45 .R/
[2017-04-03] MEDS ORDERED: IBUP-1542 PO (21:55)
--- NOTE | 2017-04-03 22:04 | ERD ---
ER Documentation Chief Complaint Date/Time DATE: 04/03/17 TIME: 22:01 Chief Complaint left foot bruise/ pain since this am, an object fell on his left foot HPI Patient is a 46-year-old male who presents to the ED with left foot pain after a marble slab fell onto his foot this morning. He denies radiation of pain and states that the pain is located only on his left foot. He is able to ambulate but has pain putting pressure on it. Patient walked to the ED. Denies hitting his head or passing out. Denies loss of consciousness. No other complaints. ROS All systems reviewed and are negative except as per history of present illness. Medications Home Meds Active Scripts Ibuprofen* (Motrin*) 600 Mg Tab, 600 MG PO Q6, #30 TAB Prov:PRETTY KAN PA-C 04/03/17 Ibuprofen* (Ibuprofen*) 600 Mg Tablet, 600 MG PO Q8 for 30 Days, TAB Prov:PHIL DOMINGUEZ MD 01/17/17 Allergies Allergies: Coded Allergies: No Known Allergy (Unverified , 01/16/17) PMhx/Soc History of Surgery: No Anesthesia Reaction: No Hx Neurological Disorder: No Hx Respiratory Disorders: No Hx Cardiac Disorders: No Hx Psychiatric Problems: No Hx Miscellaneous Medical Probl: No Hx Alcohol Use: No Hx Substance Use: No Hx Tobacco Use: No Smoking Status: Never smoker FmHx Family History: No coronary disease, No diabetes, No other Physical Exam Vitals Vital Signs Date Time Temp Pulse Resp B/P Pulse Ox O2 Delivery O2 Flow Rate FiO2 04/03/17 18:47 99.2 109 20 119/69 98 Physical Exam GENERAL: Well-developed, well-nourished male. Appears in no acute distress. HEAD: Normocephalic, atraumatic. EYES: Pupils are equally reactive bilaterally. EOMs grossly intact. No conjunctival erythema. ENT: Moist mucous membranes. No uvula deviation. No kissing tonsils. No exudates. NECK: Supple. No lymphadenopathy or thyromegaly. No meningismus. negative kernig. negative brudinski. LUNG: Clear to auscultation bilaterally. No rhonchi, wheezing, rales or coarse breath sounds. HEART: Regular rate and rhythm. No murmurs, rubs or gallops. Extremities: Equal pulses bilaterally. No unilateral leg swelling. left foot has ecchymosis and swelling. tenderness to medial metatarsals. Patient intact. Pulses intact. Patient able to flex and extend foot but has pain with extreme motion. No pain at the base of the fifth metatarsal. No ankle pain. No proximal fibula pain. No pain above the ankle joint NEUROLOGIC: Alert and oriented. . 5/5 strength in all extremities. Normal speech. nonsteady SKIN: Normal color. Warm and dry. No rashes or lesions. Capillary refill < 2 seconds Results 24 hrs Current Medications Medications (Trade) Dose Ordered Sig/Loly Route PRN Reason Start Time Stop Time Status Last Admin Dose Admin Ketorolac Tromethamine (Toradol) 30 mg ONCE STAT IM 04/03/17 20:37 04/03/17 20:38 DC 04/03/17 20:45 Procedures/MDM ER COURSE: I kept the patient and/or family informed of laboratory and diagnostic imaging results throughout the emergency room course. MEDICAL DECISION MAKING: This is a 46-year-old male who presents with left foot pain after sustaining trauma where a marble slab fell onto his foot this morning. Vital signs were reviewed. Patient is afebrile. Patient is not hypoxic. She is not toxic or ill- appearing. X-rays of by radiologist unremarkable for fracture dislocation. Patient has foot sprain versus foot contusion. Patient was given a walking boot and crutches in the ED. Patient was neurovascularly intact post placement. Patient was given Toradol and tolerated well. Low suspicion for dislocation, fracture, septic joint, compartment syndrome, osteomyelitis, cellulitis, avascular necrosis, neurological injury, vascular injury, tendon laceration. DISCHARGE: At this time, patient is stable for discharge and outpatient management with no new complaints during the ER course. Patient was sent home with P[place] and to follow-up with orthopedics.. Patient will be discharged home with instructions to recheck for new or worsening symptoms such as fever, nausea, weakness, LOC and to follow up with primary care in the next 1-2 days. Patient was advised to return to the ER for any new or worsening symptoms. Plan was discussed and patient and/or family understands and agrees. Home instructions were given. Departure Diagnosis: Primary Impression: Contusion of foot, left Encounter type: initial encounter Qualified Code: S90.32XA - Contusion of left foot, initial encounter Condition: Stable Patient Instructions: Contusion, Foot, Sprain Foot Referrals: [facility] 7 a.m.- 11 p.m. Every Day of the Week NO APPOINTMENT OR AUTHORIZATION NEEDED [facility] Hours: Fri-Fri 9:00 AM - 5:00 PM Additional Instructions: Llame al doctor MAANA y ambrose darion CARLYLE PARA DENTRO DE 1-2 GILL.Dgale a la secretaria que nosotros le instruimos hacer esta carlyle.Avise o llame si andujar condicin se empeora antes de la carlyle. Regresa aqui si peor o no mejor. PRETTY KAN PA-C Apr 03, 2017 22:04
== END 2017-04-03 22:00 | disposition home or self-care (01) ==
LOC: FTE 18:33
DX: S90.32XA Contusion of left foot, initial encounter (principal); W20.8XXA Other cause of strike by thrown, projected or falling object, initial encounter; Y92.9 Unspecified place or not applicable
CPT/HCPCS: 73610; 73630; 96372; J1885; Z7502

== ENCOUNTER → 2017-07-02 | Emergency (ER) | payer OTHER ==
[~2017-07-02] VITALS: Ht 165.1 cm; Wt 53.2 kg
[2017-07-02 01:32] VITALS: Ht 165.1 cm; Wt 53.2 kg
== END | disposition left against medical advice (07) ==
LOC: FTE 00:53
DX: Z53.21 Procedure and treatment not carried out due to patient leaving prior to being seen by health care provider (principal)

== ENCOUNTER 2017-09-22 07:00 | Emergency (ER) | END 2017-09-22 09:02 | disposition home or self-care (01) ==

== ENCOUNTER 2017-09-22 13:53 | Emergency (ER) | END 2017-09-22 19:11 | disposition home or self-care (01) ==

== ENCOUNTER 2017-09-23 14:39 | Emergency (ER) | END 2017-09-24 00:03 | disposition home or self-care (01) ==

== ENCOUNTER 2018-02-13 10:14 | Emergency (ER) | END 2018-02-13 11:54 | disposition home or self-care (01) ==

== ENCOUNTER 2018-03-04 09:25 | Emergency (ER) | END 2018-03-04 11:44 | disposition home or self-care (01) ==

== ENCOUNTER 2018-03-21 21:45 | Emergency (ER) | END 2018-03-21 23:20 | disposition home or self-care (01) ==

== ENCOUNTER 2018-09-19 13:31 | Emergency (ER) | payer OTHER ==
[~2018-09-19] VITALS: Ht 167.6 cm; Wt 58.1 kg
[~2018-09-19 13:31] MED LIST changes: +BEN25 PO; +BEN50 PO; +DIPH28.33 TP; +DOXY100T20 PO; +HC30CR25 TOP; +HYDR-4011 PO; +NAPR-688 PO; +SALI414L TOP
[2018-09-19 13:33] VITALS: Ht 167.6 cm; Wt 58.1 kg
[2018-09-19] MEDS ORDERED: IBUPROFEN 600 MG TAB PO ONE (16:00)
[2018-09-19] MEDS ORDERED: IBUP-1542 PO (16:38)
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
[2018-09-19 17:02] VITALS: BP 115/67; PULSE 79; RESP 20
== END 2018-09-19 17:03 | disposition home or self-care (01) ==
LOC: FTE 13:31
DX: S63.112A Subluxation of metacarpophalangeal joint of left thumb, initial encounter (principal); F17.210 Nicotine dependence, cigarettes, uncomplicated; W01.0XXA Fall on same level from slipping, tripping and stumbling without subsequent striking against object, initial encounter; Y92.009 Unspecified place in unspecified non-institutional (private) residence as the place of occurrence of the external cause
CPT/HCPCS: 26641; 73110; 73130; Z7610

== ENCOUNTER 2019-02-04 20:50 | Emergency (ER) | payer OTHER ==
[~2019-02-04] VITALS: Ht 157.5 cm; Wt 52.1 kg
[~2019-02-04 20:50] MED LIST changes: +MAG355OR14 PO; +NAPR-985 PO; +ONDA4TAB8 PO
[2019-02-04 21:29] VITALS: Ht 157.5 cm; Wt 52.1 kg
[2019-02-05] MEDS ORDERED: LORAZEPAM 2 MG INJ IV ONE (00:30)
[2019-02-05] MEDS ORDERED: SOD CHLORIDE 0.9% 1,000 ML IV STA (00:30)
[2019-02-05] MEDS ORDERED: ONDANSETRON 4 MG INJ IV STA (00:30)
[2019-02-05] MEDS ORDERED: LIDOCAINE/MYLANTA 40 ML BTL PO STA (00:30)
[2019-02-05] MEDS ORDERED: KETOROLAC 15 MG INJ IV STA (00:30)
[2019-02-05] MEDS ORDERED: BELLADONNA/PHENOBARBITAL TAB PO STA (00:30)
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
[2019-02-05 05:30] VITALS: BP 103/63; PULSE 89; RESP 23
== END 2019-02-05 05:40 | disposition home or self-care (01) ==
LOC: E/R 20:50
DX: R10.13 Epigastric pain (principal); F10.10 Alcohol abuse, uncomplicated; R74.0 Nonspecific elevation of levels of transaminase and lactic acid dehydrogenase [LDH]; Z87.891 Personal history of nicotine dependence
CPT/HCPCS: 36415; 80053; 80307; 83690; 84484; 85025; 96374; 96375; J1885; J2060; J2405; J7030; Z7502; Z7610

== ENCOUNTER 2019-02-19 22:00 | Emergency (ER) | payer OTHER ==
[~2019-02-19] VITALS: Ht 160 cm; Wt 53.4 kg
[2019-02-19 22:17] VITALS: Ht 160 cm; Wt 53.4 kg
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
[2019-02-20 03:40] VITALS: BP 105/68; PULSE 81; RESP 18
== END 2019-02-20 03:50 | disposition home or self-care (01) ==
LOC: E/R 22:00
DX: D72.819 Decreased white blood cell count, unspecified (principal); Z87.891 Personal history of nicotine dependence
CPT/HCPCS: 36415; 71045; 80048; 84484; 85025; Z7502; 93005

== ENCOUNTER 2019-03-11 09:05 | Emergency (ER) | payer OTHER ==
[~2019-03-11] VITALS: Ht 157.5 cm; Wt 58.0 kg
[~2019-03-11 09:05] MED LIST changes: -BEN25 PO; -BEN50 PO; -DIPH28.33 TP; -DOXY100T20 PO; +FAMO20TA18 PO; -HC30CR25 TOP; -HYDR-4011 PO; -MAG355OR14 PO; -NAPR-688 PO; -NAPR-985 PO; +PANT40TA3 PO; -SALI414L TOP
[2019-03-11 09:09] VITALS: Ht 157.5 cm; Wt 58.0 kg
[2019-03-11] MEDS ORDERED: PANTOPRAZOLE 40 MG INJ IV STA (09:24)
[2019-03-11] MEDS ORDERED: SOD CHLORIDE 0.9% 1,000 ML IV STA (09:24)
[2019-03-11] MEDS ORDERED: ONDANSETRON 4 MG INJ IV STA (09:24)
[2019-03-11] MEDS ORDERED: OCTREOTIDE 50 MCG in SOD CHLORIDE 0.9% 25 ML IVPB STA (09:24)
[2019-03-11 10:59] VITALS: BP 122/74; PULSE 75; RESP 20
== END 2019-03-11 11:15 | disposition home or self-care (01) ==
LOC: E/R 09:05
DX: F10.10 Alcohol abuse, uncomplicated (principal); F17.210 Nicotine dependence, cigarettes, uncomplicated; D64.9 Anemia, unspecified
CPT/HCPCS: 36415; 71045; 80053; 83690; 84484; 85025; 85610; 85730; 86850; 86900; 86901; 93005; 96361; 96374; 96375; C9113; J2354; J2405; J7030; Z7502; Z7610

== ENCOUNTER 2019-03-30 10:18 | Emergency (ER) | payer OTHER ==
[~2019-03-30] VITALS: Ht 160 cm; Wt 47.5 kg
[~2019-03-30 10:18] MED LIST changes: -IBUP-1542 PO
[2019-03-30 10:26] VITALS: Ht 160 cm; Wt 47.5 kg
[2019-03-30] MEDS ORDERED: SOD CHLORIDE 0.9% 1,000 ML IV STA (10:47)
[2019-03-30 13:16] VITALS: BP 119/66; PULSE 108; RESP 19
== END 2019-03-30 13:37 | disposition home or self-care (01) ==
LOC: E/R 10:18
DX: R41.82 Altered mental status, unspecified (principal); E86.0 Dehydration; E87.1 Hypo-osmolality and hyponatremia; F17.210 Nicotine dependence, cigarettes, uncomplicated
CPT/HCPCS: 36415; 70450; 80053; 80307; 82962; 85025; 93005; J7030; Z7502; Z7610